=== PATIENT | female | born 1945 | race American Indian/Alaskan Native ===

== ENCOUNTER 2018-03-02 09:57 | Outpatient (CLI) | payer MEDICARE | END 2018-03-02 09:58 | disposition home or self-care (01) | LOC: CARD 09:57 | PROVIDERS: ATTEND Internal Medicine | DX: R94.31 Abnormal electrocardiogram [ECG] [EKG] (principal); R06.02 Shortness of breath; R53.1 Weakness; R53.83 Other fatigue | CPT/HCPCS: 93005; 93010 ==